=== PATIENT | female | born 1975 | race Caucasian/White ===

== ENCOUNTER 2016-12-12 05:39 | Emergency (ER) | payer SELFPAY ==
[~2016-12-12] VITALS: Ht 157.5 cm; Wt 83.5 kg
[~2016-12-12 05:39] MED LIST: KETO5DRO58 OP; LORA-408; [UNRECOGNIZED DRUG - OTHER]
[2016-12-12 05:42] VITALS: Ht 157.5 cm; Wt 83.5 kg
== END 2016-12-12 06:47 | disposition left against medical advice (07) ==
LOC: FTE 05:39
DX: Z53.21 Procedure and treatment not carried out due to patient leaving prior to being seen by health care provider (principal)